=== PATIENT | female | born 1935 | race Caucasian/White ===

== ENCOUNTER → 2016-09-13 | Outpatient (CLI) | payer OTHER ==
[~2016-09-13] MED LIST: ASCO500T16 PO; ASPCH81X PO; CHOL100010 PO; FERR1TAB PO; MULT-845 PO; MULT60CA PO; ZLF/100 PO
--- NOTE | 2016-09-13 16:06 | DIAGNOSTIC IMAGING REPORT ---
CHEST 2 VIEWS ROUTINE CLINICAL HISTORY: J84.9 Interstitial lung disease COMPARISON STUDY: 11/10/2015 FINDINGS: The cardiac and mediastinal contours remain stable. There is a thoracolumbar scoliosis. There are progressive bilateral interstitial opacities, consistent with progressive interstitial lung disease. There is no significant pleural fluid.[ IMPRESSION: Progressive bilateral interstitial/fibrotic opacities. Electronically signed by: Segun Parker M.D. 09/13/2016 4:05 PM Dictated Date/Time: 09/13/2016 4:04 PM
[2016-09-19 14:19] LABS: ASPERGILLUS FUMIGATUS NEGATIVE (NEGATIVE); M. FAENI (S. RECTIVIRGULA) NEGATIVE (NEGATIVE); PIGEON SERUM NEGATIVE (NEGATIVE); SACCHAROMONOSPORA VIRIDIS AB NEGATIVE (NEGATIVE); THERMOACTINOMYCES CANDIDUS NEGATIVE (NEGATIVE); THERMOACTINOMYCES VULGARIS NEGATIVE (NEGATIVE)
== END | disposition home or self-care (01) ==
LOC: C.RAD1850 15:53
PROVIDERS: ATTEND Internal Medicine Pulmonary Disease
DX: J84.9 Interstitial pulmonary disease, unspecified (principal)

== ENCOUNTER → 2016-09-19 | Outpatient (CLI) | payer OTHER ==
--- NOTE | 2016-09-28 07:58 | CODING QUERY MEDICAL NECESSITY ---
CQSUPPORTING DIAGNOSIS NEEDED A supporting diagnosis is required for the test/procedure performed on this patient in order for us to be reimbursed by the patient's insurance. Please provide a supporting diagnosis for the following test/procedure listed below next to the test name along with your signature. *If there is no additional diagnosis for this patient that would support the following test/procedure please document that below next to the test/procedure. Test(s)/Procedure(s) that require a supporting diagnosis: DOS 09/19/16 [facility] [employer] Provider Signature: Date: Thank you Rabia Busch Health Information Management Once completed, please kindly fax back to [phone] For questions please call [phone]
== END | disposition home or self-care (01) ==
LOC: C.RC 17:12
PROVIDERS: ATTEND Internal Medicine Pulmonary Disease
DX: J84.9 Interstitial pulmonary disease, unspecified (principal)

== ENCOUNTER 2017-04-20 13:17 | Emergency (ER) | payer OTHER ==
[~2017-04-20] VITALS: Ht 157.5 cm; Wt 53.8 kg
[2017-04-20 13:21] VITALS: TEMP 36.6; Ht 157.5 cm; Wt 53.8 kg
[2017-04-20] MEDS ORDERED: ALBUT/IPRATROP 3MG/0.5MG NEB 3 ML VIAL INH STA (13:31)
--- NOTE | 2017-04-20 13:36 | EMERGENCY ROOM VISIT NOTE ---
History Report prepared by Michael: Veronica Acharya Under the Supervision of: Dr. Hi Weller D.O. First contact with patient: 13:25 Chief Complaint: TACHYCARDIA Stated Complaint: BREATHING A RACING HEART History of Present Illness The patient is a 82 year old female who presents to the Emergency Room with complaints of palpitations beginning yesterday. The patient states her pain started after she walked up several stairs. The patient reports using her oxygen yesterday afternoon which eased her pain temporarily. She wears two liters of oxygen at night and uses it as needed during the day. Presently, the patient denies any palpitations and states she feels much better. She notes shortness of breath but denies any pain or swelling in her legs, abdominal pain , fevers, cough, nausea, vomiting, or rectal bleeding. The patient called her PCP yesterday to get an appointment who referred her to the ED based off of her symptoms. The patient has a history of pulmonary fibrosis. She denies any history of [place] or blood clots. The patient is not on any blood thinners. Source of History: patient Onset: yesterday Position: other (heart) Quality: other (palpitations) Associated Symptoms: + SOB, No fevers, No cough, No nausea, No abdominal pain Review of Systems See HPI for pertinent positives & negatives. A total of 10 systems reviewed and were otherwise negative. Past Medical & Surgical Medical Problems: (1) Pulmonary fibrosis Surgical Problems: (1) H/O: hysterectomy (2) S/P knee replacement Family History Cancer Diabetes mellitus Heart disease Lung disease Social History Smoking Status: Never Smoker Alcohol Use: none Drug Use: none Marital Status: Housing Status: unknown Occupation Status: retired Current/Historical Medications Scheduled Ascorbic Acid (Ascorbic Acid), 500 MG PO BID Aspirin (Aspirin Chewable), 81 MG PO QAM Cholecalciferol (Vitamin D3), 1 TAB PO DAILY Ferrous Sulfate (Slow Release Iron), 1 TAB PO QAM Multiple Vitamins W/ Minerals (Preservision Areds 2), 1 CAP PO BID Multiple Vitamins W/ Minerals (Centrum Silver Adult 50+), 1 TAB PO QPM Sertraline HCl (Sertraline HCl), 100 MG PO QAM Allergies Coded Allergies: Alendronate (Verified Allergy, Unknown, HEADACHE, 04/20/17) Cephalexin (Verified Allergy, Unknown, HEADACHE, NAUSEA, RED FACE, ) Cephalosporins (Verified Allergy, Unknown, CEPHALEXIN: RED FACE, RASH, ) Cortisone (Unverified Allergy, Unknown, RED FACE;RASH, 04/20/17) Denosumab (Verified Allergy, Unknown, RASH, 04/20/17) Methocarbamol (Unverified Allergy, Unknown, RED FACE;RASH, 04/20/17) Mouse Protein (Verified Allergy, Unknown, RASH, 04/20/17) Salicylates (Verified Allergy, Unknown, RASH, 04/20/17) Physical Exam Vital Signs Date Time Temp Pulse Resp B/P (MAP) Pulse Ox O2 Delivery O2 Flow Rate FiO2 04/20/17 15:05 69 16 131/73 94 Room Air 04/20/17 14:04 95 Room Air 04/20/17 14:04 60 20 139/62 96 Room Air 04/20/17 13:45 63 04/20/17 13:21 36.6 98 20 139/87 90 Room Air Physical Exam GENERAL: Patient is awake, alert, and in no acute distress. Patient is resting comfortably and showing no signs of anxiety EYES: The conjunctivae are clear. The pupils are round and reactive. EARS, NOSE, MOUTH AND THROAT: The nose is without any evidence of any deformity. Mucous membranes are moist tongue is midline NECK: The neck is nontender and supple. RESPIRATORY: Breath sounds diminished throughout with scattered expiatory wheezes, no tachypnea or conversational dyspnea noted. CARDIOVASCULAR: Regular rate and rhythm noted there no murmurs rubs or gallops normal S1 normal S2 GASTROINTESTINAL: The abdomen is soft. Bowel sounds are present in all quadrants. Abdomen is nontender MUSCULOSKELETAL/EXTREMITIES: There is no evidence of gross deformity full range of motion is noted in the hips and shoulders SKIN: There is no obvious evidence of any rash. There are no petechiae, pallor or cyanosis noted. NEUROLOGIC: Patient is awake alert and oriented x3 strength is symmetric patellar reflexes are 2+ bilaterally Medical Decision & Procedures ER Provider Diagnostic Interpretation: Radiology results as stated below per my review and radiologist interpretation: CHEST ONE VIEW PORTABLE FINDINGS: The cardiac and mediastinal contours remain stable. There is radiographic evidence of underlying interstitial lung disease, similar to the preceding study. There is no acute parenchymal consolidation. There are no pleural effusions. IMPRESSION: Stable bilateral interstitial/fibrotic opacities, consistent with underlying interstitial lung disease Electronically signed by: Segun Parker M.D. Laboratory Results 04/20/17 13:45 Red Blood Count 5.09, Mean Corpuscular Volume 88.4, Mean Corpuscular Hemoglobin 29.7, Mean Corpuscular Hemoglobin Concent 33.6, Mean Platelet Volume 10.4, Neutrophils (%) (Auto) 53.8, Lymphocytes (%) (Auto) 33.6, Monocytes (%) (Auto) 7.2, Eosinophils (%) (Auto) 4.9, Basophils (%) (Auto) 0.3, Neutrophils # (Auto) 4.89, Lymphocytes # (Auto) 3.06, Monocytes # (Auto) 0.66, Eosinophils # (Auto) 0.45, Basophils # (Auto) 0.03 04/20/17 13:45 Test 04/20/17 13:45 04/20/17 13:53 White Blood Count 9.11 K/uL (4.8-10.8) Red Blood Count 5.09 M/uL (4.2-5.4) Hemoglobin 15.1 g/dL (12.0-16.0) Hematocrit 45.0 % (37-47) Mean Corpuscular Volume 88.4 fL (80-100) Mean Corpuscular Hemoglobin 29.7 pg (25-34) Mean Corpuscular Hemoglobin Concent 33.6 g/dl (32-36) Platelet Count 223 K/uL (130-400) Mean Platelet Volume 10.4 fL (7.4-10.4) Neutrophils (%) (Auto) 53.8 % Lymphocytes (%) (Auto) 33.6 % Monocytes (%) (Auto) 7.2 % Eosinophils (%) (Auto) 4.9 % Basophils (%) (Auto) 0.3 % Neutrophils # (Auto) 4.89 K/uL (1.4-6.5) Lymphocytes # (Auto) 3.06 K/uL (1.2-3.4) Monocytes # (Auto) 0.66 K/uL (0.11-0.59) Eosinophils # (Auto) 0.45 K/uL (0-0.5) Basophils # (Auto) 0.03 K/uL (0-0.2) RDW Standard Deviation 45.7 fL (36.4-46.3) RDW Coefficient of Variation 14.1 % (11.5-14.5) Immature Granulocyte % (Auto) 0.2 % Immature Granulocyte # (Auto) 0.02 K/uL (0.00-0.02) Prothrombin Time 10.5 SECONDS (9.0-12.0) Prothromb Time International Ratio 1.0 (0.9-1.1) Activated Partial Thromboplast Time 27.6 SECONDS (21.0-31.0) Partial Thromboplastin Ratio 1.1 Anion Gap 6.0 mmol/L (3-11) Est Creatinine Clear Calc Drug Dose 46.5 ml/min Estimated GFR () 86.6 Estimated GFR (Non- 74.8 BUN/Creatinine Ratio 22.9 (10-20) Calcium Level 9.2 mg/dl (8.5-10.1) Total Bilirubin 0.4 mg/dl (0.2-1) Aspartate Amino Transf (AST/SGOT) 18 U/L (15-37) Alanine Aminotransferase (ALT/SGPT) 26 U/L (12-78) Alkaline Phosphatase 85 U/L (45-117) Troponin I < 0.015 ng/ml (0-0.045) Pro-B-Type Natriuretic Peptide 1354 pg/ml (0-1800) Total Protein 8.2 gm/dl (6.4-8.2) Albumin 3.9 gm/dl (3.4-5.0) Globulin 4.3 gm/dl (2.5-4.0) Albumin/Globulin Ratio 0.9 (0.9-2) Bedside D-Dimer 423 ng/mlFEU (0-450) Laboratory results per my review. Medications Administered Medications (Trade) Dose Ordered Sig/Tyra Route Start Time Stop Time Status Last Admin Dose Admin Albuterol/ Ipratropium (Duoneb) 3 ml NOW STAT INH 04/20/17 13:31 04/20/17 13:32 DC 04/20/17 14:01 3 ML ECG Indication: SOB/dyspnea Rate (beats per minute): 76 Rhythm: sinus rhythm Findings: PAC, other (LVH noted by voltage criteria) Comparison ECG Date: Change: no significant change ED Course 1326: The patient was evaluated in room A3. A complete history and physical examination were performed. 1331: Ordered Duoneb 3 ml INH. 1519: Upon reevaluation, the patient is resting comfortably. I discussed the results and treatment plan with her. She verbalized agreement of the treatment plan. The patient was discharged home. Medical Decision Differential diagnosis: Etiologies such as infections, reactive airway disease, pneumonia, pneumothorax , COPD, CHF, cardiac ischemia, pulmonary embolism, musculoskeletal, gastrointestinal, as well as others were entertained. Nursing notes reviewed. The patient is an 82-year-old female who presented to the emergency department for evaluation of palpitations and shortness of breath. She called her primary care physician and was sent to the emergency apartment for further evaluation. The patient's EKG did not show any signs of ischemia. Her cardiac biomarkers were not elevated. The patient's d-dimer is negative. I discussed the patient's laboratory and radiographic studies with her. She was treated with a DuoNeb in the emergency apartment. She was encouraged to rest and avoid any strenuous activity. She was also encouraged to follow-up with her primary care physician as soon as possible for further evaluation. She was also encouraged to discuss the possibility that she may require a stress test to further evaluate cause her pain but return to the emergency department immediately if symptoms change worsen or the need arises. Medication Reconcilliation Current Medication List: was personally reviewed by me Blood Pressure Screening Patient's blood pressure: Elevated blood pressure Blood pressure disposition: Elevated BP felt to be situational Impression Primary Impression: Shortness of breath Additional Impression: Palpitations Scribe Attestation The scribe's documentation has been prepared under my direction and personally reviewed by me in its entirety. I confirm that the note above accurately reflects all work, treatment, procedures, and medical decision making performed by me. Departure Information Dispostion Home / Self-Care Referrals Donnell Mclean M.D.([facility]) (PCP) Forms HOME CARE DOCUMENTATION FORM, IMPORTANT VISIT INFORMATION, WORK / SCHOOL INSTRUCTIONS Patient Instructions ED Dyspnea Shortness of Breath, My [facility] Additional Instructions Call your family to schedule a follow-up appointment. Rest and avoid any strenuous activity. Consider using your oxygen throughout the day for symptomatically relief. Return to the emergency department immediately if symptoms change worsen or the need arises. Discussed the possibility with your family the may require a stress test to further evaluate the cause your symptoms. Problem Qualifiers
[2017-04-20 14:04] VITALS: O2SAT 95
[2017-04-20 14:09] LABS: BASO % 0.3 %; BASO ABS # 0.03 K/uL (0-0.2); COMPLETE YES; EOS % 4.9 %; IG% 0.2 %; LYMPH % 33.6 %; LYMPH ABS # 3.06 K/uL (1.2-3.4); MEAN CELL VOLUME 88.4 fL (80-100); MEAN CORPUSCULAR HEMOGLOBIN 29.7 pg (25-34); MEAN CORPUSCULAR HGB CONC 33.6 g/dl (32-36); MEAN PLATELET VOLUME 10.4 fL (7.4-10.4); MONO % 7.2 %; NEUT % 53.8 %; PLATELET COUNT 223 K/uL (130-400); RED BLOOD COUNT 5.09 M/uL (4.2-5.4); WHITE BLOOD COUNT 9.11 K/uL (4.8-10.8)
[2017-04-20 14:15] LABS: PARTIAL THROMBOPLASTIN RATIO 1.1; PROTHROMBIN TIME (PATIENT) 10.5 SECONDS (9.0-12.0)
[2017-04-20] MEDS ORDERED: CHOL1000 PO (14:20)
[2017-04-20 14:25] LABS: ALT/SGPT 26 U/L (12-78); AST/SGOT 18 U/L (15-37); BLOOD UREA NITROGEN 17 mg/dl (7-18); BUN/CREATININE RATIO 22.9 (10-20); CALCIUM 9.2 mg/dl (8.5-10.1); CARBON DIOXIDE 27 mmol/L (21-32); CHLORIDE 103 mmol/L (98-107); CREATININE 0.75 mg/dl (0.60-1.20); GLUCOSE 87 mg/dl (70-99); POTASSIUM 3.6 mmol/L (3.5-5.1); SODIUM 136 mmol/L (136-145)
--- NOTE | 2017-04-20 14:25 | DIAGNOSTIC IMAGING REPORT ---
CHEST ONE VIEW PORTABLE CLINICAL HISTORY: Respiratory distress COMPARISON STUDY: 09/13/2016 FINDINGS: The cardiac and mediastinal contours remain stable. There is radiographic evidence of underlying interstitial lung disease, similar to the preceding study. There is no acute parenchymal consolidation. There are no pleural effusions.[ IMPRESSION: Stable bilateral interstitial/fibrotic opacities, consistent with underlying interstitial lung disease Electronically signed by: Segun Parker M.D. 04/20/2017 2:24 PM Dictated Date/Time: 04/20/2017 2:23 PM
[2017-04-20 14:30] LABS: ALB/GLOB RATIO 0.9 (0.9-2); ALKALINE PHOSPHATASE 85 U/L (45-117)
[2017-04-20 15:05] VITALS: BP 131/73; PULSE 69; O2SAT 94
== END 2017-04-20 15:27 | disposition home or self-care (01) ==
LOC: C.EDB 13:18 → C.EDA 15:27
DX: R06.02 Shortness of breath (principal); R00.2 Palpitations; Z83.3 Family history of diabetes mellitus; Z82.49 Family history of ischemic heart disease and other diseases of the circulatory system; Z79.82 Long term (current) use of aspirin

== ENCOUNTER → 2017-11-27 | Outpatient (CLI) | payer OTHER ==
[~2017-11-27] MED LIST changes: -ASCO500T16 PO; +ATRINS NEB; +CHOL1000 PO; -CHOL100010 PO; +DEXA2TAB PO; +LVQ750 PO; +OMEP-334 PO; +XPNINS1255 INH; +[UNRECOGNIZED DRUG - CODE] PO
--- NOTE | 2017-11-27 15:19 | DIAGNOSTIC IMAGING REPORT ---
CHEST 2 VIEWS ROUTINE CLINICAL HISTORY: J18.9 [id number] COMPARISON STUDY: 11/06/2017 FINDINGS: The cardiac and mediastinal contours remain stable. There are diffuse interstitial pulmonary fibrotic changes. There is been partial resolution of the previous identified focal right midlung zone airspace opacity. There are no new areas of parenchymal consolidation. There are no pleural effusions. IMPRESSION: 1. Chronic interstitial lung disease similar to the prior study 2. Partial resolution of the previous described focal right midlung zone airspace opacity Electronically signed by: Segun Parker M.D. 11/27/2017 3:18 PM Dictated Date/Time: 11/27/2017 3:16 PM
== END | disposition home or self-care (01) ==
LOC: C.RAD1850 15:08
PROVIDERS: ATTEND Physician Assistant
DX: J18.9 Pneumonia, unspecified organism (principal)

== ENCOUNTER 2018-07-12 11:47 | Inpatient (IN) ==
[2018-07-12] MEDS ORDERED: CLINDAMYCIN 600 MG/54 ML BAG IV ONE (12:33)
[2018-07-12] MEDS ORDERED: SODIUM CHLORIDE 0.9% 1000ML 1,000 ML IV SCH (12:45)
[2018-07-12 13:25] LABS: Basophils # (auto) 0.02 K/uL (0-0.2); Basophils % (auto) 0.2 %; Hematocrit (blood only) 43.1 % (37-47); Hemoglobin 14.4 g/dL (12.0-16.0); Immature Granulocytes # (auto) 0.49 K/uL (0.00-0.02); Immature Granulocytes % (auto) 3.8 %; Lymphocytes # (auto) 1.56 K/uL (1.2-3.4); Mean Corpuscular Hgb Conc 33.4 g/dL (32-36); Mean Platelet Volume 9.9 fL (7.4-10.4); Monocytes # (auto) 0.62 K/uL (0.11-0.59); Monocytes % (auto) 4.8 %; Neutrophils # (auto) 10.34 K/uL (1.4-6.5); Neutrophils % (auto) 79.2 %; Nucleated RBC # (auto) 0.04 K/uL (0-0); Nucleated RBC % (auto) 0.3 %; Platelet Count 246 K/uL (130-400); RDW Coefficient of Variation 17.1 % (11.5-14.5); RDW Standard Deviation 55.6 fL (36.4-46.3); Red Blood Count 4.84 M/uL (4.2-5.4); White Blood Count 13.03 K/uL (4.8-10.8)
[2018-07-12 13:43] LABS: Albumin Level 3.1 gm/dl (3.4-5.0); BUN Creatinine Ratio 59.4 (10-20); Calcium 8.8 mg/dl (8.5-10.1); Creatinine Clr Calc Pharmacy 67.3 ml/min; Est GFR (African American) 103.8; Est GFR (Non-African American) 89.5; Potassium 4.5 mmol/L (3.5-5.1)
[2018-07-12 13:46] LABS: Albumin Globulin Ratio 0.8 (0.9-2); Bilirubin,Total 0.5 mg/dl (0.2-1); Globulin 3.7 gm/dl (2.5-4.0); Total Protein 6.8 gm/dl (6.4-8.2)
[2018-07-12] MEDS ORDERED: IOVERSOL 100ml IV PRN (14:29)
--- NOTE | 2018-07-12 14:47 | CT Scan Report ---
CT soft tissue neck w con CLINICAL HISTORY: 83 years-old Female presenting with large abscess l lower jaw. TECHNIQUE: Multidetector CT of the neck was performed after the administration of intravenous contras t. IV contrast: 94 mL of Optiray 320. One or more dose lowering techniques were used consistent with the principles of ALARA (as low as reasonably achievable), including automatic exposure control, mA o r kV adjustment to individual patient size, and/or use of iterative reconstruction. COMPARISON: None. CT DOSE (mGy.cm): The estimated cumulative dose is 281.20 mGycm. FINDINGS: Peanut Picker topogram: Diffuse pulmonary opacities. Inflammatory changes in the left buccal mucosa, which likely emanates from the body of the mandible. There is associated cortical erosion associated with the left mandibular premolars. Multilocular rim- enhancing fluid collection consistent with abscess measures up to 4.3 x 2.0 cm in maximal axial dimen fara. The fluid collection may tracks to the overlying cutis (series 3 image 126). Several teeth are absent. Dental caries noted in the left mandibular second premolar as well as a per iapical lucency of this tooth. Several maxillary teeth are absent. Amalgam diminishes the ability to evaluate the oral cavity. No lymphadenopathy. Parotid, submandibular, and thyroid glands normal. Mild degenerative changes of t he cervical spine. No nodular enhancing soft tissue along the aerodigestive tract. Atherosclerosis of the aortic arch and carotid bifurcations without significant stenosis. Limited intracranial evaluati on demonstrates patent vasculature grossly normal parenchyma. Bilateral havasupai lenses are absent. Ext ensive reticular opacities with bronchiectasis at the apices. IMPRESSION: 1. Large odontogenic abscess along the right buccal mucosa at the right body of the mandible measuri ng 4.3 x 2.0 cm. This is associated with dental caries and periapical lucency/abscess at the second l eft mandibular premolar. 2. Chronic lung disease. Electronically signed by: Raj Hodges M.D. 07/12/2018 2:46 PM
[2018-07-12] MEDS ORDERED: metroNIDAZOLE 500 MG/100 ML BAG IV SCH (17:30)
[2018-07-12] MEDS ORDERED: FUROSEMIDE 20 MG in SYRINGE 0 ML IV ONE (18:43)
--- NOTE | 2018-07-12 19:01 | Emergency Department Note ---
Entered by Nilda Mann acting as a scribe for Vishal Randall DO History of Present Illness General Chief complaint: Dental/Oral Stated complaint: ABCESS IN MOUTH NEEDS DRAINED Source: patient and family History of Present Illness Provider complaint: dental problem Location: mouth Pain Consistency: + constant Maximum Pain Intensity: 5 Quality: + other (abscess in mouth) Associated symptoms: + denies other symptoms (denies pain and trouble swallowing ); no chest pain, no nausea/vomiting and no shortness of breath The patient is an 83 year old female who presents to the Emergency Room with complaints of constant dental problem beginning 3 days ago. She states that she does not have any pain and that she does not have trouble swallowing. She also denies nausea, vomiting, chest pain, and shortness of breath. Per family, the patient went to the dentist this morning for a sore tooth and was told that she has an abscess in her mouth that needs to be drained. Her family states that the patient was referred for antibiotics. The patient states that she has pulmonary fibrosis and states that she normally wears 3L of Oxygen. Home Medications Home Medications Medication Instructions Recorded Confirmed Type aspirin 81 mg PO DAILY 07/12/18 07/12/18 History calcium carbonate-vitamin D3 2 tab PO DAILY 07/12/18 07/12/18 History [Calcium 500 + D] dexamethasone 4 mg PO DAILY 07/12/18 07/12/18 History diltiazem HCl 120 mg PO DAILY 07/12/18 07/12/18 History ferrous sulfate [Slow Fe] 142 mg PO DAILY 07/12/18 07/12/18 History ipratropium bromide 1 dose INHALATION Q4 PRN 07/12/18 07/12/18 History exyadmna-xew-cnbt-FA-lutein 1 tab PO DAILY 07/12/18 07/12/18 History [Centrum Silver Women] omeprazole 40 mg PO DAILY 07/12/18 07/12/18 History sertraline 100 mg PO DAILY 07/12/18 07/12/18 History vit C,V-Ew-fvapj-lutein-zeaxan 1 tab PO AMHS 07/12/18 07/12/18 History [PreserVision AREDS-2] vitamin E 100 unit PO DAILY 07/12/18 07/12/18 History Allergies Allergy/AdvReac Type Severity Reaction Status Date / Time alendronate sodium Allergy Unknown HEADACHE Verified 07/12/18 13:05 cephalexin Allergy Unknown HEADACHE, Verified 07/12/18 13:05 NAUSEA, RED FACE Cephalosporins Allergy Unknown CEPHALEXIN: Verified 07/12/18 13:05 RED FACE, RASH cortisone Allergy Unknown RED Unverified 07/12/18 13:05 FACE;RASH denosumab Allergy Unknown RASH Verified 07/12/18 13:05 methocarbamol Allergy Unknown RED Unverified 07/12/18 13:05 FACE;RASH mouse protein Allergy Unknown RASH Verified 07/12/18 13:05 salicylates Allergy Unknown RASH Verified 07/12/18 13:05 Past Med/Surg History Medical History Pulmonary fibrosis (Chronic) CASEY (iron deficiency anemia) (Chronic) GERD (gastroesophageal reflux disease) (Chronic) 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) Anxiety (Chronic) Interstitial pneumonitis Surgical History H/O: hysterectomy (Resolved) S/P knee replacement (Resolved) Family History Other Family history non-contributory Social History Preferred Language: Tajik marital status: / current occupational status: retired Feels Safe at Home: Yes Smoking Status: Never smoker Review of Systems See HPI for pertinent positives & negatives. and A total of 10 systems reviewed and were otherwise negative Physical Exam Vital Signs Vital Signs - 24 hr 07/12/18 11:53 07/12/18 13:10 07/12/18 15:15 Temperature 36.7 C Temperature Source Oral Sepsis Recent Fever Within 48 Hours No Sepsis New/Unexplained Change in Mental Status No Sepsis Action Taken by Nursing No Action Required Pulse Rate 110 H 68 Pulse Rate [Apical] 77 Respiratory Rate 20 18 18 Respiratory Depth Normal Blood Pressure 108/69 129/79 Blood Pressure [Left Arm] 120/81 Blood Pressure Mean 82 95 Blood Pressure Mean [Left Arm] 94 Pulse Oximetry 97 94 Oxygen Delivery Method Nasal Cannula Nasal Cannula Oxygen Flow Rate 3 3 07/12/18 16:11 07/12/18 18:02 Temperature Temperature Source Sepsis Recent Fever Within 48 Hours Sepsis New/Unexplained Change in Mental Status Sepsis Action Taken by Nursing Pulse Rate Pulse Rate [Apical] 80 80 Respiratory Rate 18 18 Respiratory Depth Blood Pressure Blood Pressure [Left Arm] 132/81 124/83 Blood Pressure Mean Blood Pressure Mean [Left Arm] 98 96 Pulse Oximetry 94 98 Oxygen Delivery Method Room Air Nasal Cannula Oxygen Flow Rate 3 GENERAL: Sitting up in bed, disheveled, alert, well appearing, well nourished, no distress, non-toxic EYE EXAM: normal conjunctiva. OROPHARYNX: 1 cm fluid-filled abscess in the left lower lip tracking to the gum line with excessive amount of green purulent material. Erythema tracking in the left lower lip down to the neck. FACE: Swelling of the left lower mandible tracking down to the left anterior n mohit with erythema. Poor dentition. Large amount of green purulent material at the gum-line below the left lower incisors. NECK: supple, no nuchal rigidity, no adenopathy, non-tender LUNGS: Coarse breath sounds at the bases. Normal chest wall mechanics HEART: no murmurs, S1 normal and S2 normal ABDOMEN: abdomen soft, non-tender, normo-active bowel, sounds, no masses, no rebound or guarding. BACK: Back is symmetrical on inspection and there is no deformity, no midline tenderness, no CVA tenderness. SKIN: no rashes and no bruising UPPER EXTREMITIES: upper extremities are grossly normal. LOWER EXTREMITIES: No pitting edema. NEURO EXAM: awake, alert, oriented, cranial nerves II-XII intact, no weakness of arms, no weakness of legs. Procedures Free Text Procedures Abscess on lower jaw was already draining and I placed a large amount of pressure expressed a large amount of green purulent material into the mouth. P atient tolerated procedure well. Course ED COURSE: Vital signs were reviewed and were normal. The patients medical record was reviewed The above diagnostic studies were performed and reviewed. ED treatments and interventions as stated above. 1221: The patient was evaluated in room A11B. A complete history and physical examination was performed. 1530: I updated the patient who verbalized agreement and understanding of the treatment plan. 1552: I discussed the patient's case with Lisa Tubbs who will evaluate the patient for further management. 1606: I discussed the patient's case with Dr. Moran-Maxillofacial Surgery who agrees with the plan. Consultations Consultation #1: Lisa Tubbs Time: 15:52 Consultation #2: Dr. Moran-Maxillofacial Surgery Time: 16:06 Administered Medications Ioversol (Optiray 320 100ml) 94 ml IV ONCE PRN PRN Reason: Interaction Checking Stop: 07/16/18 14:28 Last Admin: 07/12/18 14:30 Dose: 94 ml Documented by: [id number] Discontinued Medications Sodium Chloride (Nss 1000ml) 1,000 mls @ 999 mls/hr IV .Q1H1M EMILY Stop: 07/12/18 13:45 Last Infusion: 07/12/18 14:23 Dose: 0 mls/hr Documented by: [id number] Admin: 07/12/18 13:09 Dose: 999 mls/hr Documented by: [id number] Clindamycin Phosphate (Cleocin) 600 mg in 54 mls @ 100 mls/hr IV ONE ONE Stop: 07/12/18 13:05 Last Infusion: 07/12/18 14:23 Dose: 0 mls/hr Documented by: [id number] Admin: 07/12/18 13:13 Dose: 100 mls/hr Documented by: [id number] Medical Decision Making Differential Diagnosis Differential diagnoses includes but is not limited to dental fracture, dental carries, and dental abscess. Medical Records Attestation: I reviewed the patient's medical records. Home Medications Current Medication List: was personally reviewed by me Laboratory Data Attestation: I reviewed the patient's lab results. Result diagrams: 07/12/18 13:06 07/12/18 13:06 Lab Results 07/12/18 07/12/18 Range/Units 13:06 13:06 WBC 13.03 H (4.8-10.8) K/uL RBC 4.84 (4.2-5.4) M/uL Hgb 14.4 (12.0-16.0) g/dL Hct 43.1 (37-47) % MCV 89.0 (80-100) fL MCH 29.8 (25-34) pg MCHC 33.4 (32-36) g/dL RDW Std Deviation 55.6 H (36.4-46.3) fL RDW Coeff of Walker 17.1 H (11.5-14.5) % Plt Count 246 (130-400) K/uL MPV 9.9 (7.4-10.4) fL Immature Gran % (Auto) 3.8 % Neut % (Auto) 79.2 % Lymph % (Auto) 12.0 % [place] % (Auto) 4.8 % Eos % (Auto) 0.0 % Baso % (Auto) 0.2 % Immature Gran # (Auto) 0.49 H (0.00-0.02) K/uL Neut # (Auto) 10.34 H (1.4-6.5) K/uL Lymph # (Auto) 1.56 (1.2-3.4) K/uL [place] # (Auto) 0.62 H (0.11-0.59) K/uL Eos # (Auto) 0.00 (0-0.5) K/uL Baso # (Auto) 0.02 (0-0.2) K/uL Absolute Nucleated RBC 0.04 H (0-0) K/uL Nucleated RBC % (auto) 0.3 % Sodium 138 (136-145) mmol/L Potassium 4.5 (3.5-5.1) mmol/L Chloride 101 (98-107) mmol/L Carbon Dioxide 32 (21-32) mmol/L Anion Gap 5.0 (3-11) BUN 30 H (7-18) mg/dl Creatinine 0.51 L (0.6-1.2) mg/dl Est Cr Clr Drug Dosing 67.3 ml/min Est GFR ( Amer) 103.8 Est GFR (Non-Af Amer) 89.5 BUN/Creatinine Ratio 59.4 H (10-20) Glucose 118 H (70-99) mg/dl Calcium 8.8 (8.5-10.1) mg/dl Total Bilirubin 0.5 (0.2-1) mg/dl AST 21 (15-37) U/L ALT 59 (12-78) U/L Alkaline Phosphatase 68 (45-117) U/L Total Protein 6.8 (6.4-8.2) gm/dl Albumin 3.1 L (3.4-5.0) gm/dl Globulin 3.7 (2.5-4.0) gm/dl Albumin/Globulin Ratio 0.8 L (0.9-2) Lipase 126 (73-393) U/L Imaging Data Radiologist's Impression: Radiology results as stated below per my review and the radiologist's interpretation: CT soft tissue neck w con CLINICAL HISTORY: 83 years-old Female presenting with large abscess l lower jaw. TECHNIQUE: Multidetector CT of the neck was performed after the administration of intravenous contrast. IV contrast: 94 mL of Optiray 320. One or more dose lowering techniques were used consistent with the principles of ALARA (as low as reasonably achievable), including automatic exposure control, mA or kV adjustment to individual patient size, and/or use of iterative reconstruction. COMPARISON: None. CT DOSE (mGy.cm): The estimated cumulative dose is 281.20 mGycm. FINDINGS: Asset Protection Lead topogram: Diffuse pulmonary opacities. Inflammatory changes in the left buccal mucosa, which likely emanates from the body of the mandible. There is associated cortical erosion associated with the left mandibular premolars. Multilocular rim-enhancing fluid collection consistent with abscess measures up to 4.3 x 2.0 cm in maximal axial dimension. The fluid collection may tracks to the overlying cutis (series 3 image 126). Several teeth are absent. Dental caries noted in the left mandibular second premolar as well as a periapical lucency of this tooth. Several maxillary teeth are absent. Amalgam diminishes the ability to evaluate the oral cavity. No lymphadenopathy. Parotid, submandibular, and thyroid glands normal. Mild degenerative changes of the cervical spine. No nodular enhancing soft tissue along the aerodigestive tract. Atherosclerosis of the aortic arch and carotid bifurcations without significant stenosis. Limited intracranial evaluation demonstrates patent vasculature grossly normal parenchyma. Bilateral kake lenses are absent. Extensive reticular opacities with bronchiectasis at the apices. IMPRESSION: 1. Large odontogenic abscess along the right buccal mucosa at the right body of the mandible measuring 4.3 x 2.0 cm. This is associated with dental caries and periapical lucency/abscess at the second left mandibular premolar. 2. Chronic lung disease. Electronically signed by: Raj Hodges M.D. 07/12/2018 2:46 PM Blood Pressure Blood Pressure Findings: Normal blood pressure MDM Narrative Patient is an 83-year-old female that presents the ER referred in by her dentist for a large abscess over tooth. She actually has the abscess tracking through her lower lip with a large amount of green purulent drainage which I was able to express. Labs were obtained and showed a leukocytosis of 13,000. BMP along with LFTs bilirubin lipase is unremarkable. Patient was given IV fluids and IV clindamycin. CT of the soft tissue of the neck confirms a large abscess. Patient and family were updated bedside. Discussed with oral maxillofacial and the hospitalist patient was accepted for further workup. Patient was given IV fluids. Impression & Plan Dental abscess, Facial cellulitis Discharge Plan Visit Data Chief Complaint: Dental/Oral Stated Complaint: ABCESS IN MOUTH NEEDS DRAINED ED Provider: Vishal Randall Discharge Problem: Dental abscess, Facial cellulitis Patient Disposition: Being Evaluated by Hospitalist Discharge Instructions Interventions: ED Discharge Assessment Last Done: 07/12/18 18:04 Forms Stand Alone Forms: My [facility] Prescriptions Prescriptions: No Action sertraline 100 mg tablet 100 mg PO DAILY RF: 0 omeprazole 40 mg capsule,delayed release(DR/EC) 40 mg PO DAILY RF: 0 dexamethasone 4 mg tablet 4 mg PO DAILY RF: 0 diltiazem HCl 120 mg capsule,extended release 24hr 120 mg PO DAILY RF: 0 ipratropium bromide 0.02 % solution 1 dose Inhalation Q4 PRN (Reason: Shortness Of Breath) RF: 0 vitamin E 100 unit Capsule 100 unit PO DAILY RF: 0 aspirin 81 mg Tablet,Delayed Release (Dr/Ec) 81 mg PO DAILY RF: 0 calcium carbonate-vitamin D3 [Calcium 500 + D] 500 mg(1,250mg) -200 unit Tablet 2 tab PO DAILY RF: 0 Slow Fe 142 mg (45 mg iron) Tablet Extended Release 142 mg PO DAILY RF: 0 Centrum Silver Women 8 mg iron-400 mcg-300 mcg Tablet 1 tab PO DAILY RF: 0 PreserVision AREDS-2 [id number] Capsule 1 tab PO AMHS RF: 0 Referrals Referrals: Donnell Mclean MD [Primary Care Provider] - The scribe's documentation has been prepared under my direction and personally reviewed by me in its entirety. I confirm that the note above accurately reflects all work, treatment, procedures, and medical decision making performed by me.
[2018-07-12] MEDS ORDERED: ACETAMINOPHEN 325 MG TAB PO PRN (19:38)
[2018-07-12] MEDS ORDERED: IPRATROPIUM BROMIDE NEB SOLN 0.02% 2.5 ML VIAL INH PRN (19:38)
[2018-07-12] MEDS ORDERED: NON-FORMULARY MEDICATION (Vit C,E-Zn-Coppr-Lutein-Zeaxan [Preservision Areds-2] 1 TAB) PO SCH (21:00)
--- NOTE | 2018-07-12 21:03 | History & Physical Report ---
Date of Service July 12, 2018 Assessment & Plan (1) Dental abscess: (2) Facial cellulitis: -Admit to [facility] with telemetry -Patient referred to ED by outpatient dentist for evaluation of large dental abscess with associated facial cellulitis -In the ED, CT confirmed a large abscess -ED physician was able to expel a large amount of purulent drainage with minimal pressure -Patient saturating well on chronic 3 L of oxygen, airway is patent -WBC 13 K, no other signs of sepsis -Received IV clindamycin, will continue and add metronidazole -Oral maxillofacial consult, case discussed Dr. Moran -Dr. Moran wishes to be contacted by a.m. provider for an update on the patient via his cell phone at [phone] (3) Volume overload: -On exam, patient is noted to have significant +3 pitting edema to the lower extremities -She reports this has been worsening over the past few weeks -She reports she typically has no swelling at baseline -Suspect the patient has fluid retention from use of chronic steroids for pulmonary fibrosis -will give Lasix 20 mg IV x1 and monitor response -Low Na+ diet, strict I's and O's, daily standing weight -Echo 11/2017-EF 55-59%, mild aortic valve regurgitation, mild mitral valve regurgitation, mild tricuspid valve regurgitation, grade 1 diastolic dysfunction -Check echocardiogram (4) Pulmonary fibrosis: -Saturating well on chronic 3 L of oxygen -Continue chronic dose of dexamethasone (5) Multifocal atrial tachycardia: -Stable, continue diltiazem (6) Anxiety: -Continue sertraline (7) GERD (gastroesophageal reflux disease): -Continue PPI (8) CASEY (iron deficiency anemia): -Continue iron replacement (9) DVT prophylaxis: -SCDs in the event patient needs OR I&D for dental abscess History of Present Illness Chief Complaint: Mouth pain Primary Care Provider: Donnell Mclean MD 83-year-old female who presents the ED with mouth pain. Patient reports that about 5 days ago, she developed pain and swelling along her left lower gumline. Patient was seen by her dentist today, and found to have a significant abscess and was referred to the ED for further evaluation. Patient reports that her pain is minimal. She denies fevers and chills. Reports she otherwise been feeling well. She denies chest pain, shortness of breath, palpitations. Patient does report increasing lower extremity edema over the past 2 weeks. She reports she typically has no swelling in her legs. She denies orthopnea. No lightheadedness, dizziness, diaphoresis, syncopal events. She denies abdominal pain, nausea, vomiting, diarrhea. No urinary symptoms. In the ED, ED physician applied minimal pressure to her left lower inner lip/gum line and a large amount of green purulent material was expressed. CT was obtained showing large odontogenic abscess along the right buccal mucosa at the right body of the mandible measuring 4.3 x 2.0 cm. WBC 13 K, other labs unremarkable. Vital signs are stable. Patient was given IVF and IV clindamycin. Allergies Allergy/AdvReac Type Severity Reaction Status Date / Time alendronate sodium Allergy Unknown HEADACHE Verified 07/12/18 13:05 cephalexin Allergy Unknown HEADACHE, Verified 07/12/18 13:05 NAUSEA, RED FACE Cephalosporins Allergy Unknown CEPHALEXIN: Verified 07/12/18 13:05 RED FACE, RASH cortisone Allergy Unknown RED Unverified 07/12/18 13:05 FACE;RASH denosumab Allergy Unknown RASH Verified 07/12/18 13:05 methocarbamol Allergy Unknown RED Unverified 07/12/18 13:05 FACE;RASH mouse protein Allergy Unknown RASH Verified 07/12/18 13:05 salicylates Allergy Unknown RASH Verified 07/12/18 13:05 Home Medications Home Medications Medication Instructions Recorded Confirmed Type aspirin 81 mg PO DAILY 07/12/18 07/12/18 History calcium carbonate-vitamin D3 2 tab PO DAILY 07/12/18 07/12/18 History [Calcium 500 + D] dexamethasone 4 mg PO DAILY 07/12/18 07/12/18 History diltiazem HCl 120 mg PO DAILY 07/12/18 07/12/18 History ferrous sulfate [Slow Fe] 142 mg PO DAILY 07/12/18 07/12/18 History ipratropium bromide 1 dose INHALATION Q4 PRN 07/12/18 07/12/18 History xshpgitw-tcf-qouh-FA-lutein 1 tab PO DAILY 07/12/18 07/12/18 History [Centrum Silver Women] omeprazole 40 mg PO DAILY 07/12/18 07/12/18 History sertraline 100 mg PO DAILY 07/12/18 07/12/18 History vit C,W-Jb-guldc-lutein-zeaxan 1 tab PO AMHS 07/12/18 07/12/18 History [PreserVision AREDS-2] vitamin E 100 unit PO DAILY 07/12/18 07/12/18 History Past Med/Surg History Medical History Multifocal atrial tachycardia (Chronic) Pulmonary fibrosis (Chronic) CASEY (iron deficiency anemia) (Chronic) GERD (gastroesophageal reflux disease) (Chronic) 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) Anxiety (Chronic) Surgical History H/O repair of right rotator cuff (Chronic) S/P tonsillectomy and adenoidectomy (Chronic) History of cataract surgery (Chronic) History of carpal tunnel surgery of left wrist (Chronic) H/O: hysterectomy (Resolved) Family History Other Family history non-contributory Social History Communication Ability: Effective Flatbed Driver Required: No Beliefs That Will Affect Care: None marital status: / Current Living Situation: Alone current occupational status: retired Other Information That Helps Us Care for You: No Feels Safe at Home: Yes Safety Concerns: Feels Safe At This Time Smoking Status: Former smoker Hx Alcohol Use: No Hx Substance Use: No Review of Systems ROS per HPI, all other systems reviewed and negative Physical Exam Vital Signs (Past 24 Hours): Last Vital Signs Temp 36.7 C 07/12/18 11:53 Pulse 80 07/12/18 18:02 Resp 18 07/12/18 18:02 BP 124/83 07/12/18 18:02 Pulse Ox 98 07/12/18 18:02 Constitutional: WD/WN, vitals as above Eyes: PERRL, conjunctivae normal, anicteric sclerae ENMT: Ears: no external ear abnormality Nose: no external nose abnormality Mouth: + poor dentition Edema noted to inner left lower lip extending to t he gum line with a small amount of purulent drainage; edema/erythema noted to the left jaw extending into the neck Respiratory: normal respiratory effort, lungs clear to auscultation Cardiovascular: Rate/Rhythm: regular rate and regular rhythm Vessels: normal peripheral pulses Extremities: + edema (+ 3 pitting edema BLE) Gastrointestinal (Abdomen): normal bowel sounds, soft, nontender, no hepatosplenomegaly Musculoskeletal: no cyanosis or clubbing, extremities motor strength 5/5 Skin: no rashes, warm and dry Neurologic: PERRL, EOMI, accommodation nl, no face palsy, no dysarthria Psychiatric: A+Ox3, euthymic affect Results & Data Laboratory Results Laboratory Last Values WBC 13.03 K/uL (4.8-10.8) H 07/12/18 13:06 RBC 4.84 M/uL (4.2-5.4) 07/12/18 13:06 Hgb 14.4 g/dL (12.0-16.0) 07/12/18 13:06 Hct 43.1 % (37-47) 07/12/18 13:06 MCV 89.0 fL (80-100) 07/12/18 13:06 MCH 29.8 pg (25-34) 07/12/18 13:06 MCHC 33.4 g/dL (32-36) 07/12/18 13:06 RDW Std Deviation 55.6 fL (36.4-46.3) H 07/12/18 13:06 RDW Coeff of Walker 17.1 % (11.5-14.5) H 07/12/18 13:06 Plt Count 246 K/uL (130-400) 07/12/18 13:06 MPV 9.9 fL (7.4-10.4) 07/12/18 13:06 Immature Gran % (Auto) 3.8 % 07/12/18 13:06 Neut % (Auto) 79.2 % 07/12/18 13:06 Lymph % (Auto) 12.0 % 07/12/18 13:06 [place] % (Auto) 4.8 % 07/12/18 13:06 Eos % (Auto) 0.0 % 07/12/18 13:06 Baso % (Auto) 0.2 % 07/12/18 13:06 Immature Gran # (Auto) 0.49 K/uL (0.00-0.02) H 07/12/18 13:06 Neut # (Auto) 10.34 K/uL (1.4-6.5) H 07/12/18 13:06 Lymph # (Auto) 1.56 K/uL (1.2-3.4) 07/12/18 13:06 [place] # (Auto) 0.62 K/uL (0.11-0.59) H 07/12/18 13:06 Eos # (Auto) 0.00 K/uL (0-0.5) 07/12/18 13:06 Baso # (Auto) 0.02 K/uL (0-0.2) 07/12/18 13:06 Absolute Nucleated RBC 0.04 K/uL (0-0) H 07/12/18 13:06 Nucleated RBC % (auto) 0.3 % 07/12/18 13:06 Sodium 138 mmol/L (136-145) 07/12/18 13:06 Potassium 4.5 mmol/L (3.5-5.1) 07/12/18 13:06 Chloride 101 mmol/L (98-107) 07/12/18 13:06 Carbon Dioxide 32 mmol/L (21-32) 07/12/18 13:06 Anion Gap 5.0 (3-11) 07/12/18 13:06 BUN 30 mg/dl (7-18) H 07/12/18 13:06 Creatinine 0.51 mg/dl (0.6-1.2) L 07/12/18 13:06 Est Cr Clr Drug Dosing 67.3 ml/min 07/12/18 13:06 Est GFR ( Amer) 103.8 07/12/18 13:06 Est GFR (Non-Af Amer) 89.5 07/12/18 13:06 BUN/Creatinine Ratio 59.4 (10-20) H 07/12/18 13:06 Glucose 118 mg/dl (70-99) H 07/12/18 13:06 Calcium 8.8 mg/dl (8.5-10.1) 07/12/18 13:06 Total Bilirubin 0.5 mg/dl (0.2-1) 07/12/18 13:06 AST 21 U/L (15-37) 07/12/18 13:06 ALT 59 U/L (12-78) 07/12/18 13:06 Alkaline Phosphatase 68 U/L (45-117) 07/12/18 13:06 Total Protein 6.8 gm/dl (6.4-8.2) 07/12/18 13:06 Albumin 3.1 gm/dl (3.4-5.0) L 07/12/18 13:06 Globulin 3.7 gm/dl (2.5-4.0) 07/12/18 13:06 Albumin/Globulin Ratio 0.8 (0.9-2) L 07/12/18 13:06 Lipase 126 U/L (73-393) 07/12/18 13:06 Diagnostic Findings SOFT TISSUE NECK CT IMPRESSION: 1. Large odontogenic abscess along the right buccal mucosa at the right body of the mandible measuring 4.3 x 2.0 cm. This is associated with dental caries and periapical lucency/abscess at the second left mandibular premolar. 2. Chronic lung disease. Code Status & VTE Plan Code Status Patient is a DNR as per my discussion with her. VTE Prophylaxis Plan VTE Prophylaxis will be ordered: Yes Supervising Physician Co-Signing Physician Notes Care coordinated with Lisa Byers PA-C. Agree with above note. Patient seen and examined. Please refer to her notes for full details. Vital signs reviewed. Physical exam: General exam: Alert and oriented. Not in acute distress. Face: Left mandibulsr region below the mouth and left oral mucosa swollen and erythematous CVS: S1 and S2 heard, regular rate and rhythm, no murmurs. RS: Clear to auscultation, no wheezing or crackles. ABD: Soft, bowel sounds present, nontender, no distention. CHUTE WORKER: Nonfocal. EXT: lower extremity edema present, no erythema. Labs: Reviewed. Assessment and plan:83F present with dental abscess and left facial cellulitis Dental abscess left facial cellulitis sent from dental office on iv clindamycin added flagyl as per [facility] facial surgery recommedation no airway compromise will follow response for iv abx. Lower extremity edema chronic but getting worsened steroid induced/ will follow echo Other diagnosis and plan of care as per Lisa Byers PA-C. Rene abel MD.
[2018-07-12] MEDS: CLINDAMYCIN 600 MG in DEXTROSE 5% 50 ML IV SCH (21:06)
[2018-07-12] MEDS: metroNIDAZOLE 500 MG/100 ML BAG IV SCH (21:38)
[2018-07-13] MEDS: CLINDAMYCIN 600 MG in DEXTROSE 5% 50 ML IV SCH ×4 (02:12→20:33)
[2018-07-13] MEDS: metroNIDAZOLE 500 MG/100 ML BAG IV SCH ×3 (05:34→21:10)
[2018-07-13] MEDS ORDERED: PERFLUTREN LIPID MICROSPHERE (DEFINITY) IV ONE (07:40)
[2018-07-13] MEDS: dexAMETHasone 4 MG TAB PO SCH (07:58)
[2018-07-13] MEDS: CALCIUM 600MG + VIT D 400 IU TAB PO SCH (07:58)
[2018-07-13] MEDS: ASPIRIN 81 MG ECTAB PO SCH (07:58)
[2018-07-13] MEDS: dilTIAZem HCL 120 MG CAPCR PO SCH (07:58)
[2018-07-13] MEDS: FERROUS FUMARATE/ASCORBIC ACID 65 MG CAPCR PO SCH (07:59)
[2018-07-13] MEDS: SERTRALINE HCL 100 MG TABLET PO SCH (07:59)
[2018-07-13] MEDS: CEROVITE ADV FORMULA TAB PO SCH (07:59)
[2018-07-13] MEDS: TOCOPHERYL, DL-ALPHA 100 UNITS CAP PO SCH (07:59)
[2018-07-13] MEDS: PANTOprazole 40 MG TAB PO SCH (07:59)
[2018-07-13 08:16] LABS: Hematocrit (blood only) 38.4 % (37-47); Hemoglobin 12.8 g/dL (12.0-16.0); Mean Corpuscular Hgb Conc 33.3 g/dL (32-36); Mean Corpuscular Volume 89.3 fL (80-100); Mean Platelet Volume 9.4 fL (7.4-10.4); Nucleated RBC # (auto) 0.04 K/uL (0-0); Nucleated RBC % (auto) 0.3 %; Platelet Count 221 K/uL (130-400); RDW Coefficient of Variation 17.3 % (11.5-14.5); RDW Standard Deviation 56.2 fL (36.4-46.3)
[2018-07-13 08:51] LABS: BUN Creatinine Ratio 43.3 (10-20); Calcium 8.2 mg/dl (8.5-10.1); Creatinine Clr Calc Pharmacy 63.5 ml/min; Est GFR (African American) 101.9; Est GFR (Non-African American) 87.9; Potassium 3.9 mmol/L (3.5-5.1)
--- NOTE | 2018-07-13 10:06 | Hospitalist Progress Note ---
Date of Service July 13, 2018 Assessment & Plan (1) Dental abscess: Continue Clinda and Flagyl. Maxillofacial surgery to see for definitive treatment and washout today. (2) Volume overload: Patient appears euvolemic on exam today. Lungs were clear to auscultation. She does have 1+ pitting edema to the lower extremities but states to me that this is chronic for her. She is on daily prednisone for chronic lung disease. Uncertain if she is having some type of acute volume overload. Echocardiogram is ordered. We will also order chest x-ray this morning. Of note, she is on any daily Lasix as an outpatient. This may be needed while she is continued on steroids. (3) Pulmonary fibrosis: -Saturating well on chronic 3 L of oxygen -Continue chronic dose of dexamethasone (4) Anxiety: Stable, sertraline (5) DVT prophylaxis: -SCDs in the event patient needs OR I&D for dental abscess DNR Dispo-pending treatment by [facility] and then will dispo Fiorella Spicer DO [facility] Hospitalist Subjective 83-year-old female presented to the emergency room with complaints of dental pain was found to have a lower left mandibular abscess. She has a known history of pulmonary fibrosis and normally wears 3 L of oxygen continuously. Green purulent material was noted inside the left lower lip tracking to the gumline and was expressed by ER provider. Dr. Moran from maxillofacial surgery was contacted. The patient was admitted to the hospitalist service and placed on clindamycin. White blood cell count was 13 and the following day was normal. CT soft tissue neck without contrast revealed a large odontogenic abscess at the second left mandibular premolar. She was afebrile overnight and reported minimal pain the following morning. She is awaiting definitive treatment by Dr. Moran this morning. Associated with dental caries and periapical lucency/abscess Physical Exam Vital Signs (Past 24 Hours): Last Vital Signs Temp 36.8 C 07/13/18 07:55 Pulse 70 07/13/18 08:00 Resp 20 07/13/18 07:55 BP 126/83 07/13/18 07:55 Pulse Ox 99 07/13/18 07:55 CONSTITUTIONAL: WNWD, vitals as above, generally well-appearing EYES: normal conjuctivae, no scleral icterus ENT: MMM, mild facial erythema-appears less like a cellulitis and more like a secondary erythema from underlying inflammation. +multiple would openings with purulent material inside left lower mouth including left mandible and buccal mucosa. No facial pain to palpation NECK: no LAD RESPIRATORY: clear to auscultation bilaterally, no crackles, rales or wheezes, normal respiratory effort CARDIOVASCULAR: regular rate and rhythm, S1 and 2 heard without murmurs, gallops or rubs, no JVD, trace 1+ peripheral edema bilaterally, no carotid bruits GASTROINTESTINAL: normal bowel sounds, soft, nontender, nondistended MUSCULOSKELETAL: strength 5/5 throughout SKIN: warm and dry NEUROLOGIC: no gross focal deficits. PSYCHIATRIC: alert cooperative and oriented to person, place and time. Results & Data Laboratory Results Short CBC 07/12/18 07/13/18 Range/Units 13:06 07:49 WBC 13.03 H 10.20 (4.8-10.8) K/uL Hgb 14.4 12.8 (12.0-16.0) g/dL Hct 43.1 38.4 (37-47) % Plt Count 246 221 (130-400) K/uL BMP 07/12/18 07/13/18 13:06 07:49 Sodium 138 139 Potassium 4.5 3.9 Chloride 101 101 Carbon Dioxide 32 35 H BUN 30 H 24 H Creatinine 0.51 L 0.54 L Glucose 118 H 81 Calcium 8.8 8.2 L Liver Function 07/12/18 Range/Units 13:06 Total Bilirubin 0.5 (0.2-1) mg/dl AST 21 (15-37) U/L ALT 59 (12-78) U/L Alkaline Phosphatase 68 (45-117) U/L Albumin 3.1 L (3.4-5.0) gm/dl Medications Administered Current Inpatient Medications Acetaminophen (Tylenol) 650 mg PO Q4H PRN PRN Reason: pain/fever Stop: 08/11/18 19:37 Aspirin (Ecotrin Ectab) 81 mg PO DAILY [facility] Stop: 08/12/18 08:59 Last Admin: 07/13/18 07:58 Dose: 81 mg Documented by: Dexamethasone (Decadron) 4 mg PO DAILY [facility] Stop: 08/12/18 08:59 Last Admin: 07/13/18 07:58 Dose: 4 mg Documented by: Diltiazem HCl (Cardizem Cd) 120 mg PO DAILY [facility] Stop: 08/12/18 08:59 Last Admin: 07/13/18 07:58 Dose: 120 mg Documented by: Docusate Sodium/Ferrous Fumarate (Juan-Sequels) 65 mg PO DAILY [facility] Stop: 08/12/18 08:59 Last Admin: 07/13/18 07:59 Dose: 65 mg Documented by: Clindamycin Phosphate 600 mg/ (Dextrose) 54 mls @ 100 mls/hr IV Q6H [facility] Stop: 07/22/18 20:59 Last Infusion: 07/13/18 08:35 Dose: Infused Documented by: Metronidazole (Flagyl) 500 mg in 100 mls @ 100 mls/hr IV Q8H [facility] Stop: 07/22/18 21:59 Last Infusion: 07/13/18 06:35 Dose: Infused Documented by: Ipratropium [place] (Atrovent 0.02% 0.5mg/2.5ml) 0.5 mg INH Q4 PRN PRN Reason: Shortness Of Breath Stop: 08/11/18 19:37 Multivitamins/Minerals (Multivitamin W/ Minerals Tab) 1 tab PO DAILY [facility] Stop: 08/12/18 08:59 Last Admin: 07/13/18 07:59 Dose: 1 tab Documented by: Multivitamins/Minerals (Caltrate Plus) 2 tab PO DAILY [facility] Stop: 08/12/18 08:59 Last Admin: 07/13/18 07:58 Dose: 2 tab Documented by: Pantoprazole Sodium (Protonix) 40 mg PO DAILY [facility] Stop: 08/12/18 08:59 Last Admin: 07/13/18 07:59 Dose: 40 mg Documented by: Sertraline HCl (Zoloft) 100 mg PO DAILY [facility] Stop: 08/12/18 08:59 Last Admin: 07/13/18 07:59 Dose: 100 mg Documented by: Vitamin E (Vitamin E) 100 units PO DAILY [facility] Stop: 08/12/18 08:59 Last Admin: 07/13/18 07:59 Dose: 100 units Documented by:
--- NOTE | 2018-07-13 12:40 | Hospitalist Progress Note ---
Date of Service July 13, 2018 Assessment & Plan (1) Dental abscess: Continue Clinda and Flagyl. Maxillofacial surgery to see for definitive treatment and washout today. (2) Volume overload: Patient appears euvolemic on exam today. Lungs were clear to auscultation. She does have 1+ pitting edema to the lower extremities but states to me that this is chronic for her. She is on daily prednisone for chronic lung disease. Uncertain if she is having some type of acute volume overload. Echocardiogram is ordered. We will also order chest x-ray this morning. Of note, she is on any daily Lasix as an outpatient. This may be needed while she is continued on steroids. (3) Pulmonary fibrosis: -Saturating well on chronic 3 L of oxygen -Continue chronic dose of dexamethasone (4) Anxiety: Stable, sertraline (5) DVT prophylaxis: -SCDs in the event patient needs OR I&D for dental abscess DNR Dispo-pending treatment by [facility] and then will dispo Fiorella Spicer DO [facility] Hospitalist Physical Exam Vital Signs (Past 24 Hours): Last Vital Signs Temp 36.8 C 07/13/18 12:14 Pulse 116 H 07/13/18 12:14 Resp 16 07/13/18 12:14 BP 124/75 07/13/18 12:14 Pulse Ox 98 07/13/18 12:14
--- NOTE | 2018-07-13 13:12 | XRay Report ---
XR chest 1V portable CLINICAL HISTORY: 83 years-old Female presenting with ? fluid overload. TECHNIQUE: Portable upright AP view of the chest was obtained. COMPARISON: 04/20/2018. FINDINGS: Atherosclerosis of the aortic arch. Cardiac silhouette normal in size. Partial obscuration of the lef t heart border due to the diffuse reticular opacities. Extensive severe heterogeneity of the lung par enchyma with persistence bilateral reticular lung markings and mildly low lung volumes. No new superi mposed opacity. No large effusion or pneumothorax. Degenerative changes of the shoulders. Numerous ex ternal leads overlie the upper abdomen degrading evaluation of this region. IMPRESSION: 1. Redemonstration of severe fibrotic lung disease. No superimposed infiltrate to suggest edema or i nfection. Electronically signed by: Raj Hodges M.D. 07/13/2018 1:11 PM
[2018-07-13 13:25] LABS: Appearance Urine Clear (Clear); Bilirubin Urine Negative (Negative); Blood Urine Negative (Negative); Color Urine Yellow; Glucose Urine UA Negative (Negative); Ketones Urine Negative (Negative); Leukocyte Esterase Urine Negative (Negative); Nitrite Urine Negative (Negative); Protein Urine Negative (Negative); Specific Gravity Urine 1.019 (1.000-1.030); Urobilinogen Urine Negative (Negative); pH Urine 7.5 (4.5-7.5)
[2018-07-14] MEDS: CLINDAMYCIN 600 MG in DEXTROSE 5% 50 ML IV SCH ×2 (03:28→08:57)
[2018-07-14] MEDS: metroNIDAZOLE 500 MG/100 ML BAG IV SCH (06:04)
[2018-07-14 06:15] LABS: Hematocrit (blood only) 36.7 % (37-47); Hemoglobin 12.3 g/dL (12.0-16.0); Mean Corpuscular Hgb Conc 33.5 g/dL (32-36); Mean Corpuscular Volume 89.7 fL (80-100); Mean Platelet Volume 9.2 fL (7.4-10.4); Nucleated RBC # (auto) 0.04 K/uL (0-0); Nucleated RBC % (auto) 0.4 %; Platelet Count 211 K/uL (130-400); RDW Coefficient of Variation 17.3 % (11.5-14.5); RDW Standard Deviation 56.7 fL (36.4-46.3); Red Blood Count 4.09 M/uL (4.2-5.4); White Blood Count 10.16 K/uL (4.8-10.8)
[2018-07-14 06:50] LABS: BUN Creatinine Ratio 41.2 (10-20); Calcium 7.3 mg/dl (8.5-10.1); Creatinine Clr Calc Pharmacy 59.1 ml/min; Est GFR (African American) 99.5; Est GFR (Non-African American) 85.8; Potassium 3.6 mmol/L (3.5-5.1)
[2018-07-14] MEDS: CALCIUM 600MG + VIT D 400 IU TAB PO SCH (08:56)
[2018-07-14] MEDS: FERROUS FUMARATE/ASCORBIC ACID 65 MG CAPCR PO SCH (08:57)
[2018-07-14] MEDS: ASPIRIN 81 MG ECTAB PO SCH (08:57)
[2018-07-14] MEDS: TOCOPHERYL, DL-ALPHA 100 UNITS CAP PO SCH (08:57)
[2018-07-14] MEDS: SERTRALINE HCL 100 MG TABLET PO SCH (08:57)
[2018-07-14] MEDS: dilTIAZem HCL 120 MG CAPCR PO SCH (08:57)
[2018-07-14] MEDS: dexAMETHasone 4 MG TAB PO SCH (08:57)
[2018-07-14] MEDS: PANTOprazole 40 MG TAB PO SCH (08:57)
[2018-07-14] MEDS: CEROVITE ADV FORMULA TAB PO SCH (08:57)
--- NOTE | 2018-07-14 13:05 | Hospitalist Progress Note ---
Date of Service July 14, 2018 Assessment & Plan (1) Tachycardia: Heart rate is in the 140s-150s this morning, and was in the low 100s yesterday. It is possible that her extreme urgency to urinate this morning was the cause of the sinus tachycardia. There is otherwise no pain, palpitations, shortness of breath. She is clinically not septic. She is tolerating p.o. well. Echocardiogram revealed mildly reduced left ventricular systolic function with an EF of 45-50%. Case was discussed with cardiology who does not feel she has demonstrated any evidence of atrial fibrillation during this hospitalization, which would be a new diagnosis for her. We will continue to monitor her on telemetry after urinating this morning. Of note she is on diltiazem which was given this morning at home dose of 120 mg p.o. daily. (2) Ejection fraction < 50%: EF is decreased to 45-50% this admission, different from last echocardiogram 12/16 that revealed an EF of 55-60%. This may be rate related as her heart rate has been over 100 consistently. However, she is not overtly volume overloaded. Will recommend she follow-up with cardiology as outpatient. (3) Dental abscess: Continue Clinda and Flagyl. We will transition her to oral medication in preparation for discharge. Maxillofacial surgery to see her for definitive treatment on Monday or Monday of next week. This will be done in the office. (4) Pulmonary fibrosis: -Saturating well on chronic 3 L of oxygen -Continue chronic dose of dexamethasone (5) Anxiety: Stable, sertraline (6) DVT prophylaxis: Lovenox DNR Dispo-pending treatment by [facility] and then will dispo Fiorella Spicer DO [facility] Hospitalist Subjective Patient feels well today. Denies any pain. Reports feeling improved. Denies any fever. She denies any confusion yesterday but still has difficulty remembering certain things like if she was on Lasix and some short-term historical things. She is tolerating p.o. and is hungry. She denies any increased work of breathing. Per nursing today, Dr. Moran's plan is to follow-up with her early next week for ultimate treatment in the office. The patient is asking to go home. Of note she does have some sinus tachycardia which is risen to the 140s-150s this morning. She did have an extreme urgency to urinate and we did see a slight improvement in tachycardia after this thought to be ultimate cause. She is tolerating p.o. well and denies any pain uncertain cause of tachycardia at this time. Physical Exam Vital Signs (Past 24 Hours): Last Vital Signs Temp 36.6 C 07/14/18 11:33 Pulse 95 H 07/14/18 11:33 Resp 18 07/14/18 11:33 BP 120/74 07/14/18 11:33 Pulse Ox 94 07/14/18 11:33 CONSTITUTIONAL: WNWD, vitals as above, generally well-appearing EYES: normal conjuctivae, no scleral icterus ENT: MMM, mild facial erythema has resolved. +multiple would openings with purulent material inside left lower mouth including left mandible and buccal mucosa. No facial pain to palpation RESPIRATORY: Crackles at the bases bilaterally otherwise good air movement. No wheezing heard. CARDIOVASCULAR: regular rate and rhythm, S1 and 2 heard without murmurs, gallops or rubs, no JVD, trace 1+ peripheral edema bilaterally, no carotid bruits GASTROINTESTINAL: normal bowel sounds, soft, nontender, nondistended MUSCULOSKELETAL: strength 5/5 throughout, ambulatory with minimal to no assistance. SKIN: warm and dry NEUROLOGIC: no gross focal deficits. PSYCHIATRIC: alert cooperative and oriented to person, place and time. Results & Data Laboratory Results Short CBC 07/14/18 Range/Units 05:35 WBC 10.16 (4.8-10.8) K/uL Hgb 12.3 (12.0-16.0) g/dL Hct 36.7 L (37-47) % Plt Count 211 (130-400) K/uL BMP 07/14/18 05:35 Sodium 140 Potassium 3.6 Chloride 104 Carbon Dioxide 33 H BUN 24 H Creatinine 0.58 L Glucose 92 Calcium 7.3 L Urine 07/13/18 Range/Units Unknown Urine Color Yellow Urine Appearance Clear (Clear) Urine pH 7.5 (4.5-7.5) Ur Specific [place] 1.019 (1.000-1.030) Urine Protein Negative (Negative) Urine Glucose (UA) Negative (Negative) Medications Administered Current Inpatient Medications Acetaminophen (Tylenol) 650 mg PO Q4H PRN PRN Reason: pain/fever Stop: 08/11/18 19:37 Aspirin (Ecotrin Ectab) 81 mg PO DAILY [facility] Stop: 08/12/18 08:59 Last Admin: 07/14/18 08:57 Dose: 81 mg Documented by: Dexamethasone (Decadron) 4 mg PO DAILY [facility] Stop: 08/12/18 08:59 Last Admin: 07/14/18 08:57 Dose: 4 mg Documented by: Diltiazem HCl (Cardizem Cd) 120 mg PO DAILY [facility] Stop: 08/12/18 08:59 Last Admin: 07/14/18 08:57 Dose: 120 mg Documented by: Docusate Sodium/Ferrous Fumarate (Juan-Sequels) 65 mg PO DAILY [facility] Stop: 08/12/18 08:59 Last Admin: 07/14/18 08:57 Dose: 65 mg Documented by: Clindamycin Phosphate 600 mg/ (Dextrose) 54 mls @ 100 mls/hr IV Q6H [facility] Stop: 07/22/18 20:59 Last Infusion: 07/14/18 09:55 Dose: Infused Documented by: Metronidazole (Flagyl) 500 mg in 100 mls @ 100 mls/hr IV Q8H [facility] Stop: 07/22/18 21:59 Last Infusion: 07/14/18 07:34 Dose: Infused Documented by: Ipratropium [place] (Atrovent 0.02% 0.5mg/2.5ml) 0.5 mg INH Q4 PRN PRN Reason: Shortness Of Breath Stop: 08/11/18 19:37 Multivitamins/Minerals (Multivitamin W/ Minerals Tab) 1 tab PO DAILY [facility] Stop: 08/12/18 08:59 Last Admin: 07/14/18 08:57 Dose: 1 tab Documented by: Multivitamins/Minerals (Caltrate Plus) 2 tab PO DAILY [facility] Stop: 08/12/18 08:59 Last Admin: 07/14/18 08:56 Dose: 2 tab Documented by: Pantoprazole Sodium (Protonix) 40 mg PO DAILY [facility] Stop: 08/12/18 08:59 Last Admin: 07/14/18 08:57 Dose: 40 mg Documented by: Sertraline HCl (Zoloft) 100 mg PO DAILY [facility] Stop: 08/12/18 08:59 Last Admin: 07/14/18 08:57 Dose: 100 mg Documented by: Vitamin E (Vitamin E) 100 units PO DAILY [facility] Stop: 08/12/18 08:59 Last Admin: 07/14/18 08:57 Dose: 100 units Documented by: ECG Rhythm: sinus tachycardia
[2018-07-14 15:30] LABS: Prothrombin Time 10.7 Seconds (9.0-12.0)
[2018-07-14] MEDS: ENOXAPARIN INJ 40 MG/0.4 ML SYR SQ SCH (16:22)
[2018-07-14] MEDS: AMOXICILLIN/CLAVULANATE 875 MG TAB PO SCH (16:22)
[2018-07-14] MEDS: dilTIAZem HCl 60 MG TAB PO SCH (20:20)
--- NOTE | 2018-07-14 21:06 | Consultation Report ---
DATE OF CONSULTATION: 07/14/2018 CHIEF COMPLAINT: Dental abscess and swelling along the left mandible. I will defer you to the patient's ER and then admission history and physical for the details of her past medical history. HISTORY OF PRESENT ILLNESS: She was admitted after presenting to the ER with a large dental abscess that developed at least 5 days and probably longer along her left lower gumline. She had checked it with her dentist, but they referred her to the ER. 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 At that point, we made the decision to start her on IV clindamycin and metronidazole and admit to the hospital for close observation. She has remained afebrile while here taking p.o. without any difficulty. Her white count was initially at 13,000, but that decreased to 10,000 after initiation of the IV antibiotics. She is comfortable and now the size of her swelling is significantly diminished. 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 Intraorally, there is still moderate swelling along the left mandible without any mucosal ulceration or signs of a mass. There is a left mandibular premolar tooth that clinically appears to be the source of the infection. ASSESSMENT: Left mandibular odontogenic abscess that is now improving with spontaneous drainage and IV antibiotics. PLAN: Once the patient is medically stable, I feel she could be transitioned to the equivalent oral antibiotics and discharged home with close outpatient followup in my office for further evaluation to determine exactly which tooth or teeth is the cause of her infection and have those teeth removed along with drainage of any abscess that might be residual at that time. Assuming she can be discharged home this weekend, I plan to see her in the office either Monday or Monday and we can get a time for that appointment by calling . Should her condition deteriorate at all over the next 24-48 hours, please contact me promptly. If the abscess starts to become larger, I can certainly do the incision and drainage here in the OR, but assessing and treating the odontogenic source of this would be best done in the office setting and hopefully all her definitive treatment can be carried out there. Thank you very much for involving me in her care.
[2018-07-15] MEDS: dilTIAZem HCl 60 MG TAB PO SCH ×3 (03:35→20:16)
[2018-07-15 06:29] LABS: BUN Creatinine Ratio 33.7 (10-20); Calcium 8.1 mg/dl (8.5-10.1); Creatinine Clr Calc Pharmacy 68.6 ml/min; Est GFR (African American) 104.5; Est GFR (Non-African American) 90.1; Potassium 4.5 mmol/L (3.5-5.1)
[2018-07-15] MEDS: AMOXICILLIN/CLAVULANATE 875 MG TAB PO SCH ×2 (07:45→16:17)
[2018-07-15] MEDS: CALCIUM 600MG + VIT D 400 IU TAB PO SCH (07:45)
[2018-07-15] MEDS: CEROVITE ADV FORMULA TAB PO SCH (07:46)
[2018-07-15] MEDS: SERTRALINE HCL 100 MG TABLET PO SCH (07:46)
[2018-07-15] MEDS: ASPIRIN 81 MG ECTAB PO SCH (07:46)
[2018-07-15] MEDS: TOCOPHERYL, DL-ALPHA 100 UNITS CAP PO SCH (07:46)
[2018-07-15] MEDS: PANTOprazole 40 MG TAB PO SCH (07:46)
[2018-07-15] MEDS: dexAMETHasone 4 MG TAB PO SCH (07:46)
[2018-07-15] MEDS: FERROUS FUMARATE/ASCORBIC ACID 65 MG CAPCR PO SCH (07:47)
[2018-07-15] MEDS ORDERED: FLUCONAZOLE 100 MG TAB PO ONE (11:00)
--- NOTE | 2018-07-15 13:29 | Hospitalist Progress Note ---
Date of Service July 15, 2018 Assessment & Plan (1) Dental abscess: Augmentin currently covering, but wound now growing staph aureus. As she is clinically improved with continue this in addition to Diflucan (recommended for 14 days). With polymicrobial culture, will consult ID formally for regimen recs with tentative plans to discharge her for definitive I&D at outpatient [facility] office tomorrow. (2) Tachycardia: Improved on the diltiazem 60mg PO q8hr regimen. Again she is not septic. This is likely related to her h/o MAT and she will need nonurgent follow-up with Cardiology to review her medication. Echocardiogram revealed mildly reduced left ventricular systolic function with an EF of 45-50%. (3) Ejection fraction < 50%: EF is decreased to 45-50% this admission, different from last echoca rdiogram 12/16 that revealed an EF of 55-60%. This may be rate related as her heart rate has been over 100 consistently. However, she is not overtly volume overloaded. Will recommend she follow-up with cardiology as outpatient for repeat echo. (4) Pulmonary fibrosis: -Saturating well on chronic 3 L of oxygen -Continue chronic dose of dexamethasone (5) Anxiety: Stable, sertraline (6) DVT prophylaxis: Lovenox DNR Dispo-likely to home in am pending PT/OT recs. Fiorella Spicer DO [facility] Hospitalist Subjective The patient likely has some memory loss at baseline, and probably some developing dementia. Her children have expressed concerns that she is unsafe to go home. The patient is ambulating without assistance and is overall improved from a clinical standpoint. Facial erythema has improved on Clinda/Flagyl, then switched to Augmentin yesterday. She is tolerating the antibiotic and is afebrile. She is tolerating PO. She is hemodynamically stable without leukocytosis on bloodwork. She feels well today. Wound cultures grew [place], which was discussed with ID who recommends 14 dys of fluconazole. Still awaiting PT and OT consults today and need time to speak with the family regarding disposition home. She is on Medrol for her lungs and this in addition to an infection is not the best recipe and may cause problems for her. Additionally will plan to formally consult ID for the right regimen going home with plans for outpatient I&D tomorrow per Dr. Moran [place]. Physical Exam Vital Signs (Past 24 Hours): Last Vital Signs Temp 36.2 C L 07/15/18 11:40 Pulse 99 H 07/15/18 11:40 Resp 20 07/15/18 11:40 BP 126/76 07/15/18 11:40 Pulse Ox 98 07/15/18 11:40 CONSTITUTIONAL: WNWD, vitals as above, generally well-appearing EYES: normal conjuctivae, no scleral icterus ENT: MMM, mild facial erythema has resolved. +multiple would openings with purulent material inside left lower mouth including left mandible and buccal mucosa. No facial pain to palpation RESPIRATORY: Crackles at the bases bilaterally otherwise good air movement. No wheezing heard. CARDIOVASCULAR: regular rate and rhythm, S1 and 2 heard without murmurs, gallops or rubs, no JVD, trace 1+ peripheral edema bilaterally, no carotid bruits GASTROINTESTINAL: normal bowel sounds, soft, nontender, nondistended MUSCULOSKELETAL: strength 5/5 throughout, ambulatory with minimal to no assistance. SKIN: warm and dry NEUROLOGIC: no gross focal deficits. PSYCHIATRIC: alert cooperative and oriented to person, place and time. Results & Data Laboratory Results [facility] 07/15/18 05:30 Sodium 141 Potassium 4.5 D Chloride 104 Carbon Dioxide 36 H BUN 17 Creatinine 0.50 L Glucose 105 H Calcium 8.1 L Medications Administered Current Inpatient Medications Acetaminophen (Tylenol) 650 mg PO Q4H PRN PRN Reason: pain/fever Stop: 08/11/18 19:37 Amoxicillin/Clavulanate Potassium (Augmentin 875mg) 1 tab PO BIDM [facility] Stop: 07/24/18 16:59 Last Admin: 07/15/18 07:45 Dose: 1 tab Documented by: Aspirin (Ecotrin Ectab) 81 mg PO DAILY [facility] Stop: 08/12/18 08:59 Last Admin: 07/15/18 07:46 Dose: 81 mg Documented by: Dexamethasone (Decadron) 4 mg PO DAILY [facility] Stop: 08/12/18 08:59 Last Admin: 07/15/18 07:46 Dose: 4 mg Documented by: Diltiazem HCl (Cardizem) 60 mg PO Q8H [facility] Stop: 08/13/18 19:59 Last Admin: 07/15/18 11:45 Dose: 60 mg Documented by: Docusate Sodium/Ferrous Fumarate (Juan-Sequels) 65 mg PO DAILY [facility] Stop: 08/12/18 08:59 Last Admin: 07/15/18 07:47 Dose: 65 mg Documented by: Enoxaparin Sodium (Lovenox) 40 mg SQ Q24H [facility] Stop: 08/13/18 15:59 Last Admin: 07/14/18 16:22 Dose: 40 mg Documented by: Fluconazole (Diflucan) 100 mg PO QAM [facility] Stop: 07/26/18 08:59 Ipratropium [place] (Atrovent 0.02% 0.5mg/2.5ml) 0.5 mg INH Q4 PRN PRN Reason: Shortness Of Breath Stop: 08/11/18 19:37 Multivitamins/Minerals (Multivitamin W/ Minerals Tab) 1 tab PO DAILY [facility] Stop: 08/12/18 08:59 Last Admin: 07/15/18 07:46 Dose: 1 tab Documented by: Multivitamins/Minerals (Caltrate Plus) 2 tab PO DAILY [facility] Stop: 08/12/18 08:59 Last Admin: 07/15/18 07:45 Dose: 2 tab Documented by: Pantoprazole Sodium (Protonix) 40 mg PO DAILY [facility] Stop: 08/12/18 08:59 Last Admin: 07/15/18 07:46 Dose: 40 mg Documented by: Sertraline HCl (Zoloft) 100 mg PO DAILY [facility] Stop: 08/12/18 08:59 Last Admin: 07/15/18 07:46 Dose: 100 mg Documented by: Vitamin E (Vitamin E) 100 units PO DAILY [facility] Stop: 08/12/18 08:59 Last Admin: 07/15/18 07:46 Dose: 100 units Documented by:
[2018-07-15] MEDS: ENOXAPARIN INJ 40 MG/0.4 ML SYR SQ SCH (16:17)
[2018-07-16] MEDS: dilTIAZem HCl 60 MG TAB PO SCH ×2 (04:50→11:42)
--- NOTE | 2018-07-16 07:27 | Hospitalist Progress Note ---
Date of Service July 16, 2018 Assessment & Plan (1) Dental abscess: Augmentin currently covering, but wound now growing staph aureus. As she is clinically improved with continue this in addition to Diflucan (recommended for 14 days). With polymicrobial culture, will consult ID formally for regimen recs with tentative plans to discharge her for definitive I&D at outpatient [facility] [place]. (2) Tachycardia: Improved on the diltiazem 60mg PO q8hr regimen. Again she is not septic. This is likely related to her h/o MAT and she will need nonurgent follow-up with Cardiology to review her medication. Echocardiogram revealed mildly reduced left ventricular systolic function with an EF of 45-50%. (3) Ejection fraction < 50%: EF is decreased to 45-50% this admission, different from last echoca rdiogram 12/16 that revealed an EF of 55-60%. This may be rate related as her heart rate has been over 100 consistently. However, she is not overtly volume overloaded. Will recommend she follow-up with cardiology as outpatient for repeat echo. (4) Pulmonary fibrosis: -Saturating well on chronic 3 L of oxygen -Continue chronic dose of dexamethasone (5) Anxiety: Stable, sertraline (6) DVT prophylaxis: Lovenox DNR Dispo-likely to home in am pending PT/OT recs. Fiorella Spicer DO [facility] Hospitalist (7) Chronic respiratory failure with hypoxia: Physical Exam Vital Signs (Past 24 Hours): Last Vital Signs Temp 36.9 C 07/16/18 07:10 Pulse 91 H 07/16/18 07:10 Resp 18 07/16/18 07:10 BP 136/81 07/16/18 07:10 Pulse Ox 98 07/16/18 07:10
[2018-07-16] MEDS: CEROVITE ADV FORMULA TAB PO SCH (08:30)
[2018-07-16] MEDS: AMOXICILLIN/CLAVULANATE 875 MG TAB PO SCH (08:30)
[2018-07-16] MEDS: SERTRALINE HCL 100 MG TABLET PO SCH (08:30)
[2018-07-16] MEDS: dexAMETHasone 4 MG TAB PO SCH (08:30)
[2018-07-16] MEDS: ASPIRIN 81 MG ECTAB PO SCH (08:30)
[2018-07-16] MEDS: FERROUS FUMARATE/ASCORBIC ACID 65 MG CAPCR PO SCH (08:30)
[2018-07-16] MEDS: CALCIUM 600MG + VIT D 400 IU TAB PO SCH (08:30)
[2018-07-16] MEDS: PANTOprazole 40 MG TAB PO SCH (08:30)
[2018-07-16] MEDS: TOCOPHERYL, DL-ALPHA 100 UNITS CAP PO SCH (08:30)
[2018-07-16] MEDS ORDERED: FLUCONAZOLE 100 MG TAB PO SCH (09:00)
--- NOTE | 2018-07-16 11:06 | Infectious Disease Consult ---
Date of Consultation July 16, 2018 Assessment & Plan (1) Facial cellulitis: continue po fluconazole, will change to po doxy x 14 days as well due to clinda resistance. ok for d/c when otherwise stable, will need outpatient extraction. (2) Dental abscess: History of Present Illness Attending Physician: Fiorella Spicer DO pt admitted from dentist office due to large abscess/ dental infection. underwent CT in ER showing 4.3x2.0cm abscess, this spontaneously opened and was cultured - cultures growing MSSA and C. albicans. pt is augmentin, fluconazole and IV clinda, isolate is clinda resistant. clinically she is improving, she denies oral pain, states she is eating well. no f/c. no additional drainage, no procedures planned until d/c home. likely tooth extraction on outpatient basis. wbc improved from 13 to 10, tolerating abx. no cp, sob, cough, no abd pain, no n/v/d. Allergies Allergy/AdvReac Type Severity Reaction Status Date / Time alendronate sodium Allergy Unknown HEADACHE Verified 07/12/18 13:05 cephalexin Allergy Unknown HEADACHE, Verified 07/12/18 13:05 NAUSEA, RED FACE Cephalosporins Allergy Unknown CEPHALEXIN: Verified 07/12/18 13:05 RED FACE, RASH cortisone Allergy Unknown RED Unverified 07/12/18 13:05 FACE;RASH denosumab Allergy Unknown RASH Verified 07/12/18 13:05 methocarbamol Allergy Unknown RED Unverified 07/12/18 13:05 FACE;RASH mouse protein Allergy Unknown RASH Verified 07/12/18 13:05 salicylates Allergy Unknown RASH Verified 07/12/18 13:05 Home Medications Home Medications Medication Instructions Recorded Confirmed Type aspirin 81 mg PO DAILY 07/12/18 07/12/18 History calcium carbonate-vitamin D3 2 tab PO DAILY 07/12/18 07/12/18 History [Calcium 500 + D] dexamethasone 4 mg PO DAILY 07/12/18 07/12/18 History diltiazem HCl 120 mg PO DAILY 07/12/18 07/12/18 History ferrous sulfate [Slow Fe] 142 mg PO DAILY 07/12/18 07/12/18 History ipratropium bromide 1 dose INHALATION Q4 PRN 07/12/18 07/12/18 History ebcrcglw-gzc-vssf-FA-lutein 1 tab PO DAILY 07/12/18 07/12/18 History [Centrum Silver Women] omeprazole 40 mg PO DAILY 07/12/18 07/12/18 History sertraline 100 mg PO DAILY 07/12/18 07/12/18 History vit C,G-Wd-drvdk-lutein-zeaxan 1 tab PO AMHS 07/12/18 07/12/18 History [PreserVision AREDS-2] vitamin E 100 unit PO DAILY 07/12/18 07/12/18 History Patient History Medical History Multifocal atrial tachycardia (Chronic) Pulmonary fibrosis (Chronic) CASEY (iron deficiency anemia) (Chronic) GERD (gastroesophageal reflux disease) (Chronic) 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) Anxiety (Chronic) Surgical History H/O repair of right rotator cuff (Chronic) S/P tonsillectomy and adenoidectomy (Chronic) History of cataract surgery (Chronic) History of carpal tunnel surgery of left wrist (Chronic) H/O: hysterectomy (Resolved) Family History Other Family history non-contributory Social History Communication Ability: Effective Beliefs That Will Affect Care: None marital status: / Current Living Situation: Alone current occupational status: retired Other Information That Helps Us Care for You: No Feels Safe at Home: Yes Safety Concerns: Feels Safe At This Time Smoking Status: Former smoker Hx Alcohol Use: No Hx Substance Use: No Review of Systems all remaining ros reviewed and are negative Physical Exam Vital Signs (Past 24 Hours): Last Vital Signs Temp 36.9 C 07/16/18 07:10 Pulse 91 H 07/16/18 07:10 Resp 18 07/16/18 07:10 BP 136/81 07/16/18 07:10 Pulse Ox 98 07/16/18 07:10 Constitutional: WD/WN, vitals as above Eyes: PERRL, conjunctivae normal, anicteric sclerae ENMT: Mouth: + mouth trauma; oral mucous membranes not dry Neck: normal visual inspection Respiratory: normal respiratory effort, lungs clear to auscultation Cardiovascular: RRR, no murmur, no edema Gastrointestinal (Abdomen): normal bowel sounds, soft, nontender, no hepatosplenomegaly Musculoskeletal: no cyanosis or clubbing, extremities motor strength 5/5 Skin: no rashes, warm and dry facial wound at right mandible closed, no drainge no bleeding, min edema non tender, no warmth, no erythema Psychiatric: A+Ox3, euthymic affect Results & Data Laboratory Results Microbiology 07/13/18 Unknown Mouth Gram Stain - Final 07/13/18 Unknown Mouth Wound Culture - Final Gilma albicans Staphylococcus aureus 07/12/18 18:55 Blood Blood Culture - Preliminary No growth to date. 07/12/18 18:47 Blood Blood Culture - Preliminary No growth to date.
[2018-07-16] MEDS ORDERED: DOXYCYCLINE HYCLATE 100 MG CAP PO SCH (11:15)
--- NOTE | 2018-07-16 12:55 | Discharge Summary ---
Date of Service July 16, 2018 Admission HPI Per Admitting Provider 83-year-old female who presents the ED with mouth pain. Patient reports that about 5 days ago, she developed pain and swelling along her left lower gumline. Patient was seen by her dentist today, and found to have a significant abscess and was referred to the ED for further evaluation. Patient reports that her pain is minimal. She denies fevers and chills. Reports she otherwise been feeling well. She denies chest pain, shortness of breath, palpitations. Patient does report increasing lower extremity edema over the past 2 weeks. She reports she typically has no swelling in her legs. She denies orthopnea. No lightheadedness, dizziness, diaphoresis, syncopal events. She denies abdominal pain, nausea, vomiting, diarrhea. No urinary symptoms. In the ED, ED physician applied minimal pressure to her left lower inner lip/gum line and a large amount of green purulent material was expressed. CT was obtained showing large odontogenic abscess along the right buccal mucosa at the right body of the fred ble measuring 4.3 x 2.0 cm. WBC 13 K, other labs unremarkable. Vital signs are stable. Patient was given IVF and IV clindamycin. Admission Exam Per Admitting Provider Temp 36.7 C 07/12/18 11:53 Pulse 80 07/12/18 18:02 Resp 18 07/12/18 18:02 BP 124/83 07/12/18 18:02 Pulse Ox 98 07/12/18 18:0 Constitutional: WD/WN, vitals as above Eyes: PERRL, conjunctivae normal, anicteric sclerae ENMT: Ears: no external ear abnormality Nose: no external nose abnormality Mouth: + poor dentition Edema noted to inner left lower lip extending to the gum line with a small amount of purulent drainage; edema/erythema noted to the left jaw extending into the neck Respiratory: normal respiratory effort, lungs clear to auscultation Cardiovascular: Rate/Rhythm: regular rate and regular rhythm Vessels: normal peripheral pulses Extremities: + edema (+ 3 pitting edema BLE) Gastrointestinal (Abdomen): normal bowel sounds, soft, nontender, no hepatosplenomegaly Musculoskeletal: no cyanosis or clubbing, extremities motor strength 5/5 Skin: no rashes, warm and dry Neurologic: PERRL, EOMI, accommodation nl, no face palsy, no dysarthria Psychiatric: A+Ox3, euthymic affect Principal Diagnosis periodontal abscess chronic hypoxemic repiratory failure chronic steroid use Discharge Data Allergies Allergy/AdvReac Type Severity Reaction Status Date / Time alendronate sodium Allergy Unknown HEADACHE Verified 07/12/18 13:05 cephalexin Allergy Unknown HEADACHE, Verified 07/12/18 13:05 NAUSEA, RED FACE Cephalosporins Allergy Unknown CEPHALEXIN: Verified 07/12/18 13:05 RED FACE, RASH cortisone Allergy Unknown RED Unverified 07/12/18 13:05 FACE;RASH denosumab Allergy Unknown RASH Verified 07/12/18 13:05 methocarbamol Allergy Unknown RED Unverified 07/12/18 13:05 FACE;RASH mouse protein Allergy Unknown RASH Verified 07/12/18 13:05 salicylates Allergy Unknown RASH Verified 07/12/18 13:05 Consultations 07/12/18 17:20 ED Decision to Admit Stat 07/12/18 19:38 Consult Oromaxillofacial Surgery Routine 07/15/18 13:33 Consult Infectious Diseases Routine Ordered Studies 07/12/18 12:31 CT soft tissue neck w con Stat Hospital Course (1) Dental abscess: (2) Tachycardia: (3) Ejection fraction < 50%: (4) Pulmonary fibrosis: (5) Anxiety: (6) Chronic respiratory failure with hypoxia: 83 yo F with persistent periodontal abscess on left mandible for at least three weeks. She was not septic, but was admitted to the Hospitalist service for IV antibiotics. [facility] was consulted and recommended initial treatment with antibiotics and definitive treatment in his office early the following week. She was placed on clinda and flagyl IV and did well with resolution of some superficial facial erythema that was present. She was switched to Augmentin, however, wound cultures grew back Barbie and MSSA, and she was switched to 14 days of doxycycline and barbie. On day of discharge she was mentating and ambulating at baseline and was tolerating PO. She was discharged in stable condition with physical exam consistent with superficial resolution of the abscess. Close PCP and [facility] follow-up was recommended. Also noteworthy, she has a h/o MAT and had some persistent tachycardia during this admission. Her tank cooper had recently increased her Dilt CX from 120mg daily to 180, however, there was an issue of fatigue for her on this. She was increased to 60mg PO q8h and did very well with an improvement in her heart rate. She will need to followup with her Transcribing Machine Operator nonurgently for medication review. Total Time Total Time Spent Total Time Spent (In Minutes): 60 Total Time Includes: Examination of the Patient, Discharge Planning, Medication Reconciliation and Communication With Other Providers Discharge Plan Discharge Items Patient Disposition: Home - Self-Care Reason For Visit: DENTAL ABSCESS Discharge Diagnosis: dental abscess chronic hypoxia Condition: Good Discharge Goals: Therapeutic intervention Activity: Resume your previous activity Non-emergency contact: Primary Care Provider Call non-emergency contact if: you have any medication questions, your symptoms worsen, your pain is not controlled, your pain is worsening, your pain is unusual for you, your pain is concerning for you and you have a fever Follow-up/Referrals: Donnell Mclean MD [Primary Care Provider] - Diet: Regular Diet Texture: Mechanical soft (ground) Addtl Provider Instructions: Please take all medications as instructed on discharge list below. It is recommended that you follow-up with your primary care provider within one week of discharge. It is recommended that you followup with Cardiology in the next 4 weeks after adjustment of your DILTIAZEM dosing and persistent tachycardia. You will be seen by Dr. Moran for management of your teeth in the next couple of days. Someone will contact you from their office regarding a time and date. It was a pleasure taking care of you! Please call if you have any questions or problems. You can reach a [facility] hospitalist on duty at [facility] 24 hours a day by calling [phone]. Take care of yourself. iForella Spicer, DO [facility]ist Prescriptions: New doxycycline hyclate 100 mg Capsule 100 mg PO BID@0700,1900 Qty: 28 RF: 0 fluconazole 100 mg Tablet 100 mg PO BID Qty: 28 RF: 0 diltiazem HCl 60 mg Tablet 60 mg PO Q8H Qty: 90 RF: 1 Continued sertraline 100 mg tablet 100 mg PO DAILY RF: 0 omeprazole 40 mg capsule,delayed release(DR/EC) 40 mg PO DAILY RF: 0 dexamethasone 4 mg tablet 4 mg PO DAILY RF: 0 ipratropium bromide 0.02 % solution 1 dose Inhalation Q4 PRN (Reason: Shortness Of Breath) RF: 0 vitamin E 100 unit Capsule 100 unit PO DAILY RF: 0 aspirin 81 mg Tablet,Delayed Release (Dr/Ec) 81 mg PO DAILY RF: 0 calcium carbonate-vitamin D3 [Calcium 500 + D] 500 mg(1,250mg) -200 unit Tablet 2 tab PO DAILY RF: 0 Slow Fe 142 mg (45 mg iron) Tablet Extended Release 142 mg PO DAILY RF: 0 Centrum Silver Women 8 mg iron-400 mcg-300 mcg Tablet 1 tab PO DAILY RF: 0 PreserVision AREDS-2 [phone] ox-pefy-xm-mg Capsule 1 tab PO AMHS RF: 0 Discontinued diltiazem HCl 120 mg capsule,extended release 24hr 120 mg PO DAILY RF: 0 Stand-Alone Forms: [facility] Discharge Orders: Discharge Order (Routine); Ordered 07/16/18 Ordered By: Fiorella Spicer Admission Data Admit Date/Time: 07/12/18 17:19 Attending Provider: Fiorella Spicer Admit Provider: Rene Zambrano Primary Care Provider: Donnell Mclean Other Providers: Rene Zambrano ; Blayne Moran ; Dustin Villalba ; Yanique Sanders Service: Telemetry Medical Other Interventions: Discharge Summary Assessment (RN) Last Done: 07/16/18 13:26 DC Date/Time DO NOT enter until pt leaves facility: 07/16/18 14:54
== END 2018-07-16 14:54 | disposition home or self-care (01) | DRG 158 ==
LOC: ED 11:47 → 2N 17:19